=== PATIENT | female | born 1990 | race Caucasian/White ===

== ENCOUNTER 2017-06-13 08:18 | Inpatient (IN) | payer BC ==
[2017-06-13] MEDS ORDERED: Misoprostol 200 MCG Tab PO PRN (09:27)
[2017-06-13] MEDS ORDERED: Sodium Chloride 0.9% 10 ML Syringe FLUSH PRN (09:27)
[2017-06-13] MEDS ORDERED: Sodium Chloride 0.9% 2.5 ML Syringe FLUSH PRN (09:27)
[2017-06-13] MEDS ORDERED: Methylergonovine 0.2 MG/1 ML Amp IM PRN (09:27)
[2017-06-13] MEDS ORDERED: Water For Irrigation,Sterile 1,000 ML Container IRR PRN (09:27)
[2017-06-13] MEDS ORDERED: Lidocaine 1% 50 ML MDV INJECT PRN (09:27)
[2017-06-13] MEDS ORDERED: Nalbuphine 10 MG/1 ML Vial IVPUSH PRN (09:27)
[2017-06-13] MEDS ORDERED: Ampicillin 2 GM in Sodium Chloride 0.9% 100 ML IV ONE (09:27)
[2017-06-13] MEDS ORDERED: Carboprost Tromethamine 250 MCG/1 ML Amp IM PRN (09:27)
[2017-06-13] MEDS ORDERED: Oxytocin/0.9 % Sodium Chloride 30 UNIT/500 ML BAG IV SCH (09:30)
[2017-06-13] MEDS: Lactated Ringers 1,000 ML IV SCH ×2 (09:40→12:21)
[2017-06-13] MEDS ORDERED: fentaNYL 100 MCG/2 ML SDV ONE (12:40)
[2017-06-13] MEDS ORDERED: Ropivacaine HCl/PF 0 ML ONE (12:41)
[2017-06-13] MEDS ORDERED: Ropivacaine 0.2% 2 MG/ML 20 ML SDV ONE (12:41)
[2017-06-13] MEDS ORDERED: Ibuprofen 800 MG Tab PO PRN (13:26)
[2017-06-13] MEDS ORDERED: oxyCODONE 5 MG Tab PO PRN (13:26)
[2017-06-13] MEDS ORDERED: Ibuprofen 400 MG Tab PO PRN (13:26)
[2017-06-13] MEDS ORDERED: Bisacodyl 10 MG Supp RECTAL PRN (13:26)
[2017-06-13] MEDS ORDERED: Lanolin 100% Cream 7 GM Tube TOP PRN (13:26)
[2017-06-13] MEDS ORDERED: Acetaminophen 500 MG Tab PO PRN ×2 (13:26)
[2017-06-13] MEDS ORDERED: Docusate Sodium 100 MG Cap PO PRN (13:26)
[2017-06-13] MEDS: Witch Hazel Medicated Pads 40/Jar TOP PRN (15:56)
[2017-06-13] MEDS: Benzocaine/Menthol 20%-0.5% Spray 78 GM Cannister TOP PRN (15:57)
[2017-06-13] MEDS: Ampicillin 1 GM in Sodium Chloride 0.9% 50 ML IV SCH ×2 (21:04→21:05)
[2017-06-14] MEDS: Ampicillin 1 GM in Sodium Chloride 0.9% 50 ML IV SCH ×2 (00:37→02:35)
--- NOTE | 2017-06-14 08:58 | PCM.PNPP ---
- General Info Date of Service: 06/14/17 Admission Dx/Problem (Free Text): 27yo P2 s/p PPD 1 , stable Subjective Update: Patient seen at bedside , reports good pain control, minimal lochia Functional Status: Reports: Pain Controlled, Tolerating Diet, Ambulating, Urinating - Review of Systems General: Reports: No Symptoms HEENT: Reports: No Symptoms Pulmonary: Reports: No Symptoms Cardiovascular: Reports: No Symptoms Gastrointestinal: Reports: No Symptoms Genitourinary: Reports: No Symptoms Musculoskeletal: Reports: No Symptoms Skin: Reports: No Symptoms Neurological: Reports: No Symptoms - General Info Date of Service: 06/14/17 - Patient Data Vital Signs - Most Recent: Last Vital Signs Temp 36.3 C 06/14/17 04:00 Pulse 78 06/14/17 04:00 Resp 12 06/14/17 04:00 BP 115/79 06/14/17 04:00 Pulse Ox 97 06/14/17 04:00 Weight - Most Recent: 71.668 kg Lab Results - Last 24 Hours: Laboratory Results - last 24 hr 06/13/17 06/13/17 06/14/17 Range/Units 09:40 09:40 05:33 WBC 12.13 H (4.0-11.0) K/uL RBC 4.27 L (4.30-5.90) M/uL Hgb 13.5 12.0 (12.0-16.0) g/dL Hct 38.7 34.7 L (36.0-46.0) % MCV 90.6 (80.0-98.0) fL MCH 31.6 (27.0-32.0) pg MCHC 34.9 (31.0-37.0) g/dL RDW Std Deviation 43.5 (28.0-62.0) fl RDW Coeff of Belen 14 (11.0-15.0) % Plt Count 122 L (150-400) K/uL MPV 11.80 (7.40-12.00) fL Blood Type AB POSITIVE Antibody Screen NEGATIVE Med Orders - Current: Current Medications Acetaminophen (Tylenol Extra Strength) 500 mg PO Q4H PRN PRN Reason: Pain Acetaminophen (Tylenol Extra Strength) 1,000 mg PO Q4H PRN PRN Reason: Pain Benzocaine/Menthol (Dermoplast Pain Relief 20%-0.5% [place]) 78 gm TOP ASDIRECTED PRN PRN Reason: Perineal Comfort Measure Last Admin: 06/13/17 15:57 Dose: 1 can Bisacodyl (Dulcolax) 10 mg RECTAL .ONCE PRN PRN Reason: Constipation Carboprost Tromethamine (Hemabate Ds) 250 mcg IM ASDIRECTED PRN PRN Reason: Post Hemorrhage Docusate Sodium (Colace) 100 mg PO BID PRN PRN Reason: Constipation Emollient Ointment (Lansinoh Hpa) 0 gm TOP ASDIRECTED PRN PRN Reason: Sore Nipples Last Admin: 06/13/17 15:57 Dose: 1 tube Ampicillin Sodium 1 gm/ Sodium (Chloride) 50 mls @ 100 mls/hr IV Q4H [facility] Last Admin: 06/14/17 02:35 Dose: Not Given Lactated Ringer's (Ringers, Lactated) 1,000 mls @ 150 mls/hr IV ASDIRECTED [facility] Last Admin: 06/13/17 12:21 Dose: 150 mls/hr Oxytocin/Sodium Chloride (Oxytocin 30 Unit/500 Ml-Ns) 30 unit in 500 mls @ 500 mls/hr IV TITRATE [facility] Last Admin: 06/13/17 13:15 Dose: 500 mls/hr Ibuprofen (Motrin) 400 mg PO Q4H PRN PRN Reason: Pain Ibuprofen (Motrin) 800 mg PO Q6H PRN PRN Reason: Pain Lidocaine HCl (Xylocaine 1%) 50 ml INJECT .ONCE PRN PRN Reason: Laceration repair Methylergonovine Maleate (Methergine) 0.2 mg IM ASDIRECTED PRN PRN Reason: Post Hemorrhage Misoprostol (Cytotec) 200 mcg PO .ONCE PRN PRN Reason: Post Hemorrhage Nalbuphine HCl (Nubain) 10 mg IVPUSH Q1H PRN PRN Reason: Pain (severe 7-10) Last Admin: 06/13/17 10:54 Dose: 10 mg Oxycodone HCl (Oxycodone) 5 mg PO Q2H PRN PRN Reason: Pain Sodium Chloride (Saline Flush) 10 ml FLUSH ASDIRECTED PRN PRN Reason: Keep Vein Open Sodium Chloride (Saline Flush) 2.5 ml FLUSH ASDIRECTED PRN PRN Reason: Keep Vein Open Sterile Water (Sterile Water For Irrigation) 1,000 ml IRR ASDIRECTED PRN PRN Reason: delivery Last Admin: 06/13/17 13:14 Dose: 1,000 ml Witch Ashlyn (Tucks) 1 pad TOP ASDIRECTED PRN PRN Reason: comfort care Last Admin: 06/13/17 15:56 Dose: 1 canister Discontinued Medications Fentanyl (Sublimaze) Confirm Administered Dose 300 mcg .ROUTE .STK-MED ONE Stop: 06/13/17 12:41 Last Admin: 06/13/17 21:04 Dose: Not Given Ampicillin Sodium 2 gm/ Sodium (Chloride) 100 mls @ 200 mls/hr IV ONETIME ONE Stop: 06/13/17 09:56 Last Admin: 06/13/17 09:51 Dose: 200 mls/hr Ropivacaine (Naropin 0.2%) Confirm Administered Dose 100 mls @ as directed .ROUTE .STK-MED ONE Stop: 06/13/17 12:42 Last Admin: 06/13/17 21:04 Dose: Not Given Ropivacaine (Naropin 0.2%) Confirm Administered Dose 20 ml .ROUTE .STK-MED ONE Stop: 06/13/17 12:42 Last Admin: 06/13/17 21:04 Dose: Not Given - Interaction Support Person: - Recovery Exam Fundal Tone: Firm Fundal Level: At Umbilicus Fundal Placement: Midline Lochia Amount: Scant Lochia Color: Rubra/Red Perineum Description: Intact, Minimal Bruising/Swelling Episiotomy/Laceration: None Bladder Status: Voiding Urinary Elimination: Voided - Exam HEENT: Pupils Equal Lungs: Clear to Auscultation Cardiovascular: Regular Rate GI/Abdominal Exam: Normal Bowel Sounds Extremities: Normal Inspection - Problem List & Annotations (1) Vaginal delivery SNOMED Code(s): 170906216 Code(s): O80 - ENCOUNTER FOR FULL-TERM UNCOMPLICATED DELIVERY Status: Acute Current Visit: Yes - Problem List Review Problem List Initiated/Reviewed/Updated: Yes - My Orders Last 24 Hours: My Active Orders 06/13/17 09:27 Patient Status [ADT] Routine May Shower [RC] ASDIRECTED Notify Provider [RC] PRN Up ad Agnes [RC] ASDIRECTED Vital Signs [RC] PER UNIT ROUTINE Carboprost Tromethamine [Hemabate DS] 250 mcg IM ASDIRECTED PRN Lidocaine 1% [Xylocaine 1%] 50 ml INJECT .ONCE PRN Methylergonovine [Methergine] 0.2 mg IM ASDIRECTED PRN Misoprostol [Cytotec] 200 mcg PO .ONCE PRN Nalbuphine [Nubain] 10 mg IVPUSH Q1H PRN Sodium Chloride 0.9% [Saline Flush] 10 ml FLUSH ASDIRECTED PRN Sodium Chloride 0.9% [Saline Flush] 2.5 ml FLUSH ASDIRECTED PRN Water For Irrigation,Sterile [Sterile Water for Irrigation] 1,000 ml IRR ASDIRECTED PRN Scalp Electrode [WOMSER] Per Unit Routine Peripheral IV Insertion Adult [OM.PC] Routine Resuscitation Status Routine 06/13/17 09:30 Lactated Ringers [Ringers, Lactated] 1,000 ml IV ASDIRECTED Oxytocin/0.9 % Sodium Chloride [Oxytocin 30 Unit/500 ML-NS] 30 unit in 500 ml IV TITRATE 06/13/17 13:26 Patient Status [ADT] Routine May Shower [RC] ASDIRECTED Up ad Agnes [RC] ASDIRECTED Vital Signs [RC] PER UNIT ROUTINE Acetaminophen [Tylenol Extra Strength] 1,000 mg PO Q4H PRN Acetaminophen [Tylenol Extra Strength] 500 mg PO Q4H PRN Benzocaine/Menthol [Dermoplast Pain Relief 20%-0.5% [place]] 78 gm TOP ASDIRECTED PRN Bisacodyl [Dulcolax] 10 mg RECTAL .ONCE PRN Docusate Sodium [Colace] 100 mg PO BID PRN Ibuprofen [Motrin] 400 mg PO Q4H PRN Ibuprofen [Motrin] 800 mg PO Q6H PRN Lanolin [Lansinoh HPA] See Dose Instructions TOP ASDIRECTED PRN Witch Ashlyn [Tucks] 1 pad TOP ASDIRECTED PRN oxyCODONE 5 mg PO Q2H PRN Assess Lochia [WOMSER] Per Unit Routine Assess Uterine Involution [WOMSER] Per Unit Routine Peripheral IV Discontinue [OM.PC] Routine 06/13/17 14:00 Ampicillin 1 gm Sodium Chloride 0.9% [Normal Saline] 50 ml IV Q4H 06/13/17 Dinner Regular Diet [DIET] 06/13/17 Lunch Clear Liquid Diet [DIET] - Assessment Assessment:: 27 yo P2 s/p PPD 1 stable , minimal lochia - Plan Plan:: Pain control with OTC tylenol and Motrin Discharge home today Call [facility] if fever > 101 , heavy vaginal bleeding > 1 pad in 1 hr
[2017-06-14] MEDS: Benzocaine/Menthol 20%-0.5% Spray 78 GM Cannister TOP PRN (15:35)
[2017-06-14] MEDS: Witch Hazel Medicated Pads 40/Jar TOP PRN (15:35)
--- NOTE | 2017-06-14 22:23 | OR ---
SURGEON: IVAN NOWAK DATE OF PROCEDURE: 06/13/2017 PREOPERATIVE DIAGNOSIS: A 27-year-old, G2, P0-1-0-1, presented at 38 weeks 4 days in active labor. . GBS positive. POSTOPERATIVE DIAGNOSIS: Status post normal spontaneous vaginal delivery. EBL: 300. ANESTHESIA: Epidural. FINDING: A live female delivered at 1514 hours, weight was 2755 g. There was no laceration noted. score was 9 and 9. Three-vessel cord noted. BRIEF HISTORY: She was a 27-year-old, G2, P0-1-0-1 at 38weeks 4 days who came in complaining of contraction. She was noted to be 4, 50, -2 at around 10 o'clock. The patient had category 1 heart tracing and progressed accordingly at about 12 o'clock , AROM done Also patient received ampicillin for GBS prophylaxis. Patient progressed accordingly and was fully dilated PROCEDURE IN DETAIL: When the patient was fully dilated, she was encouraged to push. The patient had good pushing effort and delivered the head, followed by the anterior and posterior shoulder, followed by the 's body. The was placed on the mother's abdomen. Delayed cord clamping was observed. The cord was clamped and cut. The placenta was then delivered via controlled cord traction. After delivery of the placenta, the uterus was noted to be firm and 10 milliunits of Pitocin was given IM and also IM methergine was given because the IV line was not running. Hemostasis was noted and perineum was intact and all instrument and pad counts were correct x2. The and mother were left in the room bonding. CARLYLE BAHENA /[id number] NASIM
== END 2017-06-14 15:45 | disposition home or self-care (01) | DRG 560 ==
LOC: MW.OBCHECK 08:18 → MW.OB 08:24 → MW.OBCHECK 09:41 → MW.OB 09:41 → OBSVTOIN 13:14 → MW.OB 18:47
PROVIDERS: ADMIT Obstetrics & Gynecology; ATTEND Obstetrics & Gynecology
PROC: 10E0XZZ Delivery of Products of Conception, External Approach (ICD-10-PCS; principal; 2017-06-13)
PROC: 10907ZC Drainage of Amniotic Fluid, Therapeutic from Products of Conception, Via Natural or Artificial Opening (ICD-10-PCS; 2017-06-13)
DX: O99.824 Streptococcus B carrier state complicating childbirth (principal); Z3A.38 38 weeks gestation of pregnancy; Z37.0 Single live birth
CPT/HCPCS: 36415; 59025; 59409; 85014; 85018; 85027; 86850; 86900; 86901; A9270-GY; J0290; J2300; J2590; J7030; J7120

== ENCOUNTER 2019-06-30 05:11 | Inpatient (IN) | payer BC ==
[2019-06-30] MEDS ORDERED: Misoprostol 200 MCG Tab PO PRN (05:13)
[2019-06-30] MEDS ORDERED: Sodium Chloride 0.9% 10 ML Syringe FLUSH PRN (05:13)
[2019-06-30] MEDS ORDERED: Butorphanol 1 MG/ML SDV IVPUSH PRN (05:13)
[2019-06-30] MEDS ORDERED: Sodium Chloride 0.9% 2.5 ML Syringe FLUSH PRN (05:13)
[2019-06-30] MEDS ORDERED: Sodium Chloride 0.9% 10 ML SDV IV PRN (05:13)
[2019-06-30] MEDS ORDERED: Carboprost Tromethamine 250 MCG/1 ML Amp IM PRN (05:13)
[2019-06-30] MEDS ORDERED: Water For Irrigation,Sterile 1,000 ML Container IRR PRN (05:13)
[2019-06-30] MEDS ORDERED: Methylergonovine 0.2 MG/1 ML Amp IM PRN (05:13)
[2019-06-30] MEDS ORDERED: Terbutaline 1 MG/ML SDV SUBCUT PRN (05:13)
[2019-06-30] MEDS ORDERED: Tranexamic Acid 1,000 MG in Sodium Chloride 0.9% 100 ML IV PRN (05:13)
[2019-06-30] MEDS ORDERED: Lidocaine 1% 50 ML MDV INJECT PRN (05:13)
[2019-06-30] MEDS ORDERED: Ondansetron 4 MG/2 ML SDV IVPUSH PRN (05:13)
[2019-06-30] MEDS ORDERED: Oxytocin/0.9 % Sodium Chloride 30 UNIT/500 ML BAG IV SCH ×2 (05:15)
[2019-06-30] MEDS: Lactated Ringers 1,000 ML IV SCH ×2 (06:01→10:26)
[2019-06-30] MEDS ORDERED: Ropivacaine HCl/PF 100 ML ONE (10:06)
[2019-06-30] MEDS ORDERED: fentaNYL 100 MCG/2 ML SDV ONE (10:06)
--- NOTE | 2019-06-30 10:24 | PCM.PREANE ---
Preanesthetic Assessment - Anesthesia/Transfusion/Family Hx Anesthesia History: No Prior Anesthesia Family History of Anesthesia Reaction: No Transfusion History: No Prior Transfusion(s) - Physical Assessment NPO Status Date: 06/30/19 NPO Status Time: 00:05 Height: 1.65 m Weight: 79.379 kg ASA Class: 1 - Lab Values: Laboratory Last Values WBC 10.23 K/uL (4.0-11.0) 06/30/19 05:55 RBC 4.00 M/uL (4.30-5.90) L 06/30/19 05:55 Hgb 11.7 g/dL (12.0-16.0) L 06/30/19 05:55 Hct 34.8 % (36.0-46.0) L 06/30/19 05:55 MCV 87.0 fL (80.0-98.0) 06/30/19 05:55 MCH 29.3 pg (27.0-32.0) 06/30/19 05:55 MCHC 33.6 g/dL (31.0-37.0) 06/30/19 05:55 RDW Std Deviation 43.0 fl (28.0-62.0) 06/30/19 05:55 RDW Coeff of Belen 14 % (11.0-15.0) 06/30/19 05:55 Plt Count 132 K/uL (150-400) L 06/30/19 05:55 MPV 12.10 fL (7.40-12.00) H 06/30/19 05:55 Nucleated RBC % 0.0 /100WBC 06/30/19 05:55 Nucleated RBCs # 0 K/uL 06/30/19 05:55 Blood Type AB POSITIVE 06/30/19 05:55 Antibody Screen NEGATIVE 06/30/19 05:55 - Allergies Allergies/Adverse Reactions: Allergies Allergy/AdvReac Type Severity Reaction Status Date / Time hydrocodone Allergy Severe Difficulty Verified 06/13/17 09:27 Breathing - Acknowledgements Anesthesia Type Planned: Epidural Pt an Appropriate Candidate for the Planned Anesthesia: Yes Alternatives and Risks of Anesthesia Discussed w Pt/Guardian: Yes Pt/Guardian Understands and Agrees with Anesthesia Plan: Yes PreAnesthesia Questionnaire - Past Health History Medical/Surgical History: Denies Medical/Surgical History Cardiovascular History: Reports: None Respiratory History: Reports: None Gastrointestinal History: Reports: None Genitourinary History: Reports: None PUNCHER History: Reports: Musculoskeletal History: Reports: None Neurological History: Reports: None Psychiatric History: Reports: None Endocrine/Metabolic History: Reports: None Hematologic History: Reports: None Immunologic History: Reports: None Oncologic (Cancer) History: Reports: None Dermatologic History: Reports: None - Infectious Disease History Infectious Disease History: Reports: Chicken Pox - Past Surgical History Head Surgeries/Procedures: Reports: None HEENT Surgical History: Reports: Oral Surgery Other HEENT Surgeries/Procedures: wisdom teeth GI Surgical History: Reports: Cholecystectomy - SUBSTANCE USE Smoking Status *Q: Never Smoker Second Hand Smoke Exposure: No Recreational Drug Use History: No - CURRENT (IN HOUSE) MEDS Current Meds: Current Medications Butorphanol Tartrate (Stadol) 1 mg IVPUSH Q1H PRN PRN Reason: Pain Last Admin: 06/30/19 09:52 Dose: 1 mg Carboprost Tromethamine (Hemabate Ds) 250 mcg IM ASDIRECTED PRN PRN Reason: Post Hemorrhage Lactated Ringer's (Ringers, Lactated) 1,000 mls @ 150 mls/hr IV ASDIRECTED [facility] Last Infusion: 06/30/19 09:58 Dose: 999 mls/hr Oxytocin/Sodium Chloride (Oxytocin 30 Unit/500 Ml-Ns) 30 unit in 500 mls @ 500 mls/hr IV TITRATE [facility] Oxytocin/Sodium Chloride (Oxytocin 30 Unit/500 Ml-Ns) 30 unit in 500 mls @ 2 mls/hr IV TITRATE [facility]; Protocol Last Titration: 06/30/19 10:22 Dose: 6 munits/min, 6 mls/hr Tranexamic Acid 1,000 mg/ (Sodium Chloride) 110 mls @ 660 mls/hr IV ONETIME PRN PRN Reason: Bleeding Lidocaine HCl (Xylocaine 1%) 50 ml INJECT ONETIME PRN PRN Reason: Laceration repair Methylergonovine Maleate (Methergine) 0.2 mg IM ASDIRECTED PRN PRN Reason: Post Hemorrhage Misoprostol (Cytotec) 200 mcg PO ONETIME PRN PRN Reason: Post Hemorrhage Ondansetron HCl (Zofran) 4 mg IVPUSH Q6H PRN PRN Reason: Nausea/Vomiting Sodium Chloride (Saline Flush) 10 ml FLUSH ASDIRECTED PRN PRN Reason: Keep Vein Open Sodium Chloride (Saline Flush) 2.5 ml FLUSH ASDIRECTED PRN PRN Reason: Keep Vein Open Sodium Chloride (Normal Saline) 10 ml IV ASDIRECTED PRN PRN Reason: IV Use Sterile Water (Sterile Water For Irrigation) 1,000 ml IRR ASDIRECTED PRN PRN Reason: delivery Terbutaline Sulfate (Brethine) 0.25 mg SUBCUT ASDIRECTED PRN PRN Reason: Tacysystole Discontinued Medications Fentanyl (Sublimaze) Confirm Administered Dose 100 mcg .ROUTE .STK-MED ONE Stop: 06/30/19 10:07 Ropivacaine (Naropin 0.2%) Confirm Administered Dose 100 mls @ as directed .ROUTE .STK-MED ONE Stop: 06/30/19 10:07
--- NOTE | 2019-06-30 10:28 | PCM.PRNOTE ---
- Free Text/Narrative Note: Anes Note Patient requests epidural for L&D. Sitting position. Level L3--L4 midline approach. Sterile technique. Chloraprep scrub to lumbar area. Sterile fenstrated drape appied. Epidural space easily achieved single attempt with ease using JARRED technique. Cath threaded 5 cm with ease. Cath secured at skin at 9 cm using sterile clear adhesive dressing. Test 1015 3 cc 1.5% lido with epi negative. Load 1018 10 cc 0.2% ropivicaine with 1 mcg cc fentanyl in slow divided doses. 1021 Pump started with 90 cc of same solution. Rate is 8 cc hr, with 6 cc q 20 min prn bolus. Tiffany well. Time with patient [id number]
[2019-06-30] MEDS ORDERED: Benzocaine/Menthol 20%-0.5% Spray 78 GM Cannister TOP PRN (11:24)
[2019-06-30] MEDS ORDERED: Ibuprofen 400 MG Tab PO PRN (11:24)
[2019-06-30] MEDS ORDERED: Lanolin 100% Cream 7 GM Tube TOP PRN (11:24)
[2019-06-30] MEDS ORDERED: Acetaminophen 500 MG Tab PO PRN ×2 (11:24)
[2019-06-30] MEDS ORDERED: Docusate Sodium 100 MG Cap PO PRN (11:24)
[2019-06-30] MEDS ORDERED: Bisacodyl 10 MG Supp RECTAL PRN (11:24)
[2019-06-30] MEDS ORDERED: Ibuprofen 800 MG Tab PO PRN (11:24)
--- NOTE | 2019-06-30 11:36 | PCM.OPNOTE ---
- General Post-Op/Procedure Note Date of Surgery/Procedure: 06/30/19 Operative Procedure(s): /IP Findings: Viable female APGARs, 8, 9 weight 7 lb 15 oz. Shoulder dystocia--Jeffery positioning, suprapubic presssue, delivery of left posterior arm Pre Op Diagnosis: 39/4 week IUP. Elective IOL Post-Op Diagnosis: 39/4 week IUP. Elective IOL. Shoulder dystocia Anesthesia Technique: Epidural Primary Surgeon: Chelsea Augustin EBL in mLs: 300 Complications: Shoulder dystocia, delivery left posterior arm--on perineum 90 seconds Condition: Good Free Text/Narrative:: Dictation [id number]
--- NOTE | 2019-06-30 12:49 | OR ---
SURGEON: Chelsea Augustin M.D. DATE OF PROCEDURE: 06/30/2019 PREOPERATIVE DIAGNOSES: 1. A 39-4/7 weeks' intrauterine . 2. Elective induction of labor due to living remotely from the hospital and history of rapid labor. POSTOPERATIVE DIAGNOSES: 1. A 39-4/7 weeks' intrauterine . 2. Elective induction of labor due to living remotely from the hospital and history of rapid labor. 3. Shoulder dystocia. PROCEDURES: 1. Spontaneous vaginal delivery, intact perineum. 2. Shoulder dystocia with Jeffery positioning, suprapubic pressure, and delivery of left posterior arm. PRIMARY SURGEON: Chelsea Augustin MD. ANESTHESIA: Epidural. ESTIMATED BLOOD LOSS: 300 mL. COMPLICATIONS: Shoulder dystocia, delivery of left posterior arm, on perineum 90 seconds. DISPOSITION: The patient in LDRP, in nursery. PROCEDURE DETAILS: Margot is a 29-year-old G3, P2, at 39-4/7 weeks' gestational age, who presents on the morning of the 06/30/2019 for a scheduled induction of labor due to living remotely from the hospital and history of a rapid labor. The patient was admitted, routine labs drawn, IV hydration was initiated. Was initially found to be approximately 2 cm, 60% effaced, minus 3 station. Therefore, Pitocin was initiated. She is group B beta strep negative. heart tones category 1. Shortly before 9 a.m., the patient was found to be 3 cm, 70% effaced, minus 2 station. Underwent amniotomy, clear fluid was returned. The patient became increasingly uncomfortable, underwent regional anesthesia in the form of epidural. At that time, was found to be 5 cm. Shortly thereafter, rapidly progressed to 8 cm and then to complete, 100% effaced, +2 station with the urge to push. I was called for delivery. Upon my arrival, the patient was placed in modified dorsal lithotomy position, was prepped and draped in usual aseptic manner. The patient began pushing efforts, was able to deliver the head to a +4 station. Pitocin was at 6 milliunits. At this juncture, the patient was able to push to deliver infant's head. Thereafter, the shoulders just simply were not delivering. Therefore, the head of bed was flattened. The patient was placed in Jeffery positioning, suprapubic pressure was applied, and without delivery of the anterior shoulder. Therefore, attempted corkscrew maneuver with no manipulation of the anterior shoulder. The patient had good perineal mobility. Therefore, was able to maneuver the left posterior arm in a flexed position, cephaled, which achieved delivery of left posterior arm, followed by delivery of the anterior shoulder and remainder of the body. The 's oropharynx and nares were bulb suctioned. Cord was clamped x2 and cut. Infant was handed off to the attending ring making machine operator and nursery staff. Cord arterial, cord venous, cord blood sampling obtained. Light suprapubic pressure was applied while the placenta was delivered spontaneously intact. Vigorous fundal uterine massage was then applied while 30 units of Pitocin was delivered in 500 mL of IV fluid. Upon inspection of cervix, vaginal sidewall, perineum, these were found to be intact. Uterus remains firm, hemostasis is evident. During delivery and manipulation of the posterior arm, did hear a pop, which I notified the ring making machine operator of, and they will plan to do imaging study of the left clavicle, left humeral region of the baby. Sponge and instrument count was correct. The patient remained in LDRP, to nursery. AVIS / JOSEF /[id number] NASIM
[2019-06-30] MEDS: Witch Hazel Medicated Pads 40/Jar TOP PRN (14:27)
--- NOTE | 2019-06-30 14:34 | PCM48HPAN ---
Post Anesthesia Note - EVALUATION WITHIN 48HRS OF ANESTHETIC Vital Signs in Normal Range: Yes Patient Participated in Evaluation: Yes Respiratory Function Stable: Yes Airway Patent: Yes Cardiovascular Function Stable: Yes Hydration Status Stable: Yes Pain Control Satisfactory: Yes Nausea and Vomiting Control Satisfactory: Yes Mental Status Recovered: Yes
--- NOTE | 2019-06-30 14:34 | PCM.POSTAN ---
POST ANESTHESIA ASSESSMENT - MENTAL STATUS Mental Status: Alert - RESPIRATORY Respiratory Status: Respiratory Rate WNL - CARDIOVASCULAR CV Status: Pulse Rate WNL - GASTROINTESTINAL GI Status: No Symptoms - POST OP HYDRATION Hydration Status: Adequate & Stable
--- NOTE | 2019-07-01 08:51 | PCM.PNPP ---
- General Info Date of Service: 07/01/19 Functional Status: Reports: Pain Controlled, Tolerating Diet, Ambulating, Urinating - Review of Systems General: Reports: Fatigue. Denies: Fever, Weakness Pulmonary: Denies: Shortness of Breath Cardiovascular: Denies: Chest Pain, Palpitations, Lightheadedness Gastrointestinal: Denies: Abdominal Pain, Nausea, Vomiting Genitourinary: Denies: Flank Pain Musculoskeletal: Reports: No Symptoms Skin: Reports: No Symptoms Neurological: Reports: No Symptoms Psychiatric: Reports: No Symptoms - General Info Date of Service: 07/01/19 - Patient Data Vital Signs - Most Recent: Last Vital Signs Temp 36.8 C 07/01/19 07:30 Pulse 74 07/01/19 07:30 Resp 15 07/01/19 07:30 BP 110/73 07/01/19 07:30 Pulse Ox 98 07/01/19 07:30 Weight - Most Recent: 79.379 kg Lab Results - Last 24 Hours: Laboratory Results - last 24 hr 06/30/19 07/01/19 Range/Units 11:02 04:49 Hgb 12.1 (12.0-16.0) g/dL Hct 35.7 L (36.0-46.0) % Cord ABG pH 7.314 (7.18-7.38) Cord ABG Base Excess -5 (-10--2) Cord VBG pH 7.304 (7.25-7.45) Cord VBG Base Excess -5 (-10--2) Med Orders - Current: Current Medications Acetaminophen (Tylenol Extra Strength) 500 mg PO Q4H PRN PRN Reason: Pain Acetaminophen (Tylenol Extra Strength) 1,000 mg PO Q4H PRN PRN Reason: Pain Benzocaine/Menthol (Dermoplast Pain Relief 20%-0.5% [place]) 78 gm TOP ASDIRECTED PRN PRN Reason: Perineal Comfort Measure Last Admin: 06/30/19 14:28 Dose: 1 sprays Bisacodyl (Dulcolax) 10 mg RECTAL ONETIME PRN PRN Reason: Constipation Carboprost Tromethamine (Hemabate Ds) 250 mcg IM ASDIRECTED PRN PRN Reason: Post Hemorrhage Docusate Sodium (Colace) 100 mg PO BID PRN PRN Reason: Constipation Emollient Ointment (Lansinoh Hpa) 0 gm TOP ASDIRECTED PRN PRN Reason: Sore Nipples Lactated Ringer's (Ringers, Lactated) 1,000 mls @ 150 mls/hr IV ASDIRECTED [facility] Last Infusion: 06/30/19 11:04 Dose: 0 mls/hr Oxytocin/Sodium Chloride (Oxytocin 30 Unit/500 Ml-Ns) 30 unit in 500 mls @ 500 mls/hr IV TITRATE [facility] Oxytocin/Sodium Chloride (Oxytocin 30 Unit/500 Ml-Ns) 30 unit in 500 mls @ 2 mls/hr IV TITRATE [facility]; Protocol Last Titration: 06/30/19 11:04 Dose: 500 munits/min, 500 mls/hr Tranexamic Acid 1,000 mg/ (Sodium Chloride) 110 mls @ 660 mls/hr IV ONETIME PRN PRN Reason: Bleeding Ibuprofen (Motrin) 400 mg PO Q4H PRN PRN Reason: Pain Ibuprofen (Motrin) 800 mg PO Q6H PRN PRN Reason: Pain Last Admin: 06/30/19 20:37 Dose: 800 mg Methylergonovine Maleate (Methergine) 0.2 mg IM ASDIRECTED PRN PRN Reason: Post Hemorrhage Ondansetron HCl (Zofran) 4 mg IVPUSH Q6H PRN PRN Reason: Nausea/Vomiting Sodium Chloride (Saline Flush) 10 ml FLUSH ASDIRECTED PRN PRN Reason: Keep Vein Open Sodium Chloride (Saline Flush) 2.5 ml FLUSH ASDIRECTED PRN PRN Reason: Keep Vein Open Sodium Chloride (Normal Saline) 10 ml IV ASDIRECTED PRN PRN Reason: IV Use Sterile Water (Sterile Water For Irrigation) 1,000 ml IRR ASDIRECTED PRN PRN Reason: delivery Terbutaline Sulfate (Brethine) 0.25 mg SUBCUT ASDIRECTED PRN PRN Reason: Tacysystole Witch Ashlyn (Tucks) 1 pad TOP ASDIRECTED PRN PRN Reason: comfort care Last Admin: 06/30/19 14:27 Dose: 1 pad Discontinued Medications Butorphanol Tartrate (Stadol) 1 mg IVPUSH Q1H PRN PRN Reason: Pain Last Admin: 06/30/19 09:52 Dose: 1 mg Fentanyl (Sublimaze) Confirm Administered Dose 100 mcg .ROUTE .STK-MED ONE Stop: 06/30/19 10:07 Last Admin: 07/01/19 07:16 Dose: Not Given Ropivacaine (Naropin 0.2%) Confirm Administered Dose 100 mls @ as directed .ROUTE .STK-MED ONE Stop: 06/30/19 10:07 Last Admin: 07/01/19 07:16 Dose: Not Given Lidocaine HCl (Xylocaine 1%) 50 ml INJECT ONETIME PRN PRN Reason: Laceration repair Misoprostol (Cytotec) 200 mcg PO ONETIME PRN PRN Reason: Post Hemorrhage - Interaction Support Person: - Recovery Exam Fundal Tone: Firm Fundal Level: 1 Fingerbreadths Below Umbilicus Fundal Placement: Midline Lochia Amount: Scant Lochia Color: Rubra/Red Perineum Description: Intact, Minimal Bruising/Swelling Episiotomy/Laceration: None Bladder Status: Voiding Urinary Elimination: Voided - Exam General: Alert, Oriented Lungs: Normal Respiratory Effort Cardiovascular: Regular Rate, Regular Rhythm GI/Abdominal Exam: Normal Bowel Sounds, Soft Extremities: Pedal Edema (trace). No: Chung's Sign Skin: Warm, Dry, Intact Neurological: No New Focal Deficit Psy/Mental Status: Alert, Normal Affect, Normal Mood - Problem List & Annotations (1) Vaginal delivery SNOMED Code(s): 859625683 Code(s): O80 - ENCOUNTER FOR FULL-TERM UNCOMPLICATED DELIVERY Status: Acute Current Visit: No - Problem List Review Problem List Initiated/Reviewed/Updated: Yes - My Orders Last 24 Hours: My Active Orders 06/30/19 11:24 Notify Provider Vital Signs [RC] ASDIRECTED Acetaminophen [Tylenol Extra Strength] 1,000 mg PO Q4H PRN Acetaminophen [Tylenol Extra Strength] 500 mg PO Q4H PRN Benzocaine/Menthol [Dermoplast Pain Relief 20%-0.5% [place]] 78 gm TOP ASDIRECTED PRN Bisacodyl [Dulcolax] 10 mg RECTAL ONETIME PRN Docusate Sodium [Colace] 100 mg PO BID PRN Ibuprofen [Motrin] 400 mg PO Q4H PRN Ibuprofen [Motrin] 800 mg PO Q6H PRN Lanolin [Lansinoh HPA] See Dose Instructions TOP ASDIRECTED PRN Witch Ashlyn [Tucks] 1 pad TOP ASDIRECTED PRN 06/30/19 11:25 Patient Status [ADT] Routine May Shower [RC] ASDIRECTED Up ad Agnes [RC] ASDIRECTED Vital Signs [RC] PER UNIT ROUTINE Assess Lochia [WOMSER] Per Unit Routine Assess Uterine Involution [WOMSER] Per Unit Routine Ice Therapy [OM.PC] Per Unit Routine Perineal Care [OM.PC] Per Unit Routine Peripheral IV Discontinue [OM.PC] Routine Sitz Bath [OM.PC] Per Unit Routine 06/30/19 Lunch Regular Diet [DIET] - Assessment Assessment:: PPD 1 status post Shoulder dystocia - Plan Plan:: Continue PP cares. Patient is doing well overall. Work with today.
[2019-07-01] MEDS: Witch Hazel Medicated Pads 40/Jar TOP PRN (20:24)
--- NOTE | 2019-07-02 08:53 | PCM.PNPP ---
- General Info Date of Service: 07/02/19 Functional Status: Reports: Pain Controlled, Tolerating Diet, Ambulating, Urinating - Review of Systems General: Denies: Fever, Weakness, Fatigue Pulmonary: Denies: Shortness of Breath Cardiovascular: Denies: Chest Pain, Palpitations, Lightheadedness Gastrointestinal: Denies: Abdominal Pain, Nausea, Vomiting Genitourinary: Denies: Flank Pain Musculoskeletal: Reports: No Symptoms Skin: Reports: No Symptoms Neurological: Reports: No Symptoms Psychiatric: Reports: No Symptoms - General Info Date of Service: 07/02/19 - Patient Data Vital Signs - Most Recent: Last Vital Signs Temp 36.8 C 07/02/19 04:30 Pulse 72 07/02/19 04:30 Resp 16 07/02/19 04:30 BP 106/67 07/02/19 04:30 Pulse Ox 97 07/02/19 04:30 Weight - Most Recent: 79.379 kg Lab Results - Last 24 Hours: Laboratory Results - last 24 hr 06/30/19 Range/Units 05:55 RPR Non Reactive (NonRea<1:1) Med Orders - Current: Current Medications Acetaminophen (Tylenol Extra Strength) 500 mg PO Q4H PRN PRN Reason: Pain Acetaminophen (Tylenol Extra Strength) 1,000 mg PO Q4H PRN PRN Reason: Pain Benzocaine/Menthol (Dermoplast Pain Relief 20%-0.5% [place]) 78 gm TOP ASDIRECTED PRN PRN Reason: Perineal Comfort Measure Last Admin: 06/30/19 14:28 Dose: 1 sprays Bisacodyl (Dulcolax) 10 mg RECTAL ONETIME PRN PRN Reason: Constipation Carboprost Tromethamine (Hemabate Ds) 250 mcg IM ASDIRECTED PRN PRN Reason: Post Hemorrhage Docusate Sodium (Colace) 100 mg PO BID PRN PRN Reason: Constipation Emollient Ointment (Lansinoh Hpa) 0 gm TOP ASDIRECTED PRN PRN Reason: Sore Nipples Lactated Ringer's (Ringers, Lactated) 1,000 mls @ 150 mls/hr IV ASDIRECTED SURI Last Infusion: 06/30/19 11:04 Dose: 0 mls/hr Oxytocin/Sodium Chloride (Oxytocin 30 Unit/500 Ml-Ns) 30 unit in 500 mls @ 500 mls/hr IV TITRATE SURI Oxytocin/Sodium Chloride (Oxytocin 30 Unit/500 Ml-Ns) 30 unit in 500 mls @ 2 mls/hr IV TITRATE SURI; Protocol Last Titration: 06/30/19 11:04 Dose: 500 munits/min, 500 mls/hr Tranexamic Acid 1,000 mg/ (Sodium Chloride) 110 mls @ 660 mls/hr IV ONETIME PRN PRN Reason: Bleeding Ibuprofen (Motrin) 400 mg PO Q4H PRN PRN Reason: Pain Ibuprofen (Motrin) 800 mg PO Q6H PRN PRN Reason: Pain Last Admin: 06/30/19 20:37 Dose: 800 mg Methylergonovine Maleate (Methergine) 0.2 mg IM ASDIRECTED PRN PRN Reason: Post Hemorrhage Ondansetron HCl (Zofran) 4 mg IVPUSH Q6H PRN PRN Reason: Nausea/Vomiting Sodium Chloride (Saline Flush) 10 ml FLUSH ASDIRECTED PRN PRN Reason: Keep Vein Open Sodium Chloride (Saline Flush) 2.5 ml FLUSH ASDIRECTED PRN PRN Reason: Keep Vein Open Sodium Chloride (Normal Saline) 10 ml IV ASDIRECTED PRN PRN Reason: IV Use Sterile Water (Sterile Water For Irrigation) 1,000 ml IRR ASDIRECTED PRN PRN Reason: delivery Terbutaline Sulfate (Brethine) 0.25 mg SUBCUT ASDIRECTED PRN PRN Reason: Tacysystole Witch [place] (Tucks) 1 pad TOP ASDIRECTED PRN PRN Reason: comfort care Last Admin: 07/01/19 20:24 Dose: 1 pad Discontinued Medications Butorphanol Tartrate (Stadol) 1 mg IVPUSH Q1H PRN PRN Reason: Pain Last Admin: 06/30/19 09:52 Dose: 1 mg Fentanyl (Sublimaze) Confirm Administered Dose 100 mcg .ROUTE .STK-MED ONE Stop: 06/30/19 10:07 Last Admin: 07/01/19 07:16 Dose: Not Given Ropivacaine (Naropin 0.2%) Confirm Administered Dose 100 mls @ as directed .ROUTE .STK-MED ONE Stop: 06/30/19 10:07 Last Admin: 07/01/19 07:16 Dose: Not Given Lidocaine HCl (Xylocaine 1%) 50 ml INJECT ONETIME PRN PRN Reason: Laceration repair Misoprostol (Cytotec) 200 mcg PO ONETIME PRN PRN Reason: Post Hemorrhage - Interaction Support Person: - Recovery Exam Fundal Tone: Firm Fundal Level: 1 Fingerbreadths Below Umbilicus Fundal Placement: Midline Lochia Amount: Scant Lochia Color: Rubra/Red Perineum Description: Intact, Minimal Bruising/Swelling Episiotomy/Laceration: None Bladder Status: Voiding Urinary Elimination: Voided - Exam General: Alert, Oriented Lungs: Normal Respiratory Effort Cardiovascular: Regular Rate, Regular Rhythm GI/Abdominal Exam: Normal Bowel Sounds, Soft Extremities: Pedal Edema (trace). No: Chung's Sign Skin: Warm, Dry, Intact Neurological: No New Focal Deficit Psy/Mental Status: Alert, Normal Affect, Normal Mood - Problem List & Annotations (1) Vaginal delivery SNOMED Code(s): 319221542 Code(s): O80 - ENCOUNTER FOR FULL-TERM UNCOMPLICATED DELIVERY Status: Acute Current Visit: No - Problem List Review Problem List Initiated/Reviewed/Updated: Yes - My Orders Last 24 Hours: My Active Orders 07/02/19 08:51 Ready for Discharge [RC] PER UNIT ROUTINE - Assessment Assessment:: PPD 2 status post Shoulder dystocia - Plan Plan:: Patient feels ready to go home. Discharge instructions reviewed. Follow up at [facility] 6 weeks. Discharge to home today.
== END 2019-07-02 11:00 | disposition home or self-care (01) | DRG 560 ==
LOC: MW.OB 05:11 → MW.OBCHECK 05:11 → MW.OB 05:14 → MW.OBCHECK 05:14 → OBSVTOIN 11:25 → MW.OB 15:33
PROVIDERS: ADMIT Obstetrics & Gynecology; ATTEND Obstetrics & Gynecology
PROC: 10E0XZZ Delivery of Products of Conception, External Approach (ICD-10-PCS; principal; 2019-06-30)
PROC: 3E033VJ Introduction of Other Hormone into Peripheral Vein, Percutaneous Approach (ICD-10-PCS; 2019-06-30)
PROC: 10907ZC Drainage of Amniotic Fluid, Therapeutic from Products of Conception, Via Natural or Artificial Opening (ICD-10-PCS; 2019-06-30)
PROC: 3E0R3BZ Introduction of Anesthetic Agent into Spinal Canal, Percutaneous Approach (ICD-10-PCS; 2019-06-30)
PROC: 00HU33Z Insertion of Infusion Device into Spinal Canal, Percutaneous Approach (ICD-10-PCS; 2019-06-30)
DX: O66.0 Obstructed labor due to shoulder dystocia (principal); Z3A.39 39 weeks gestation of pregnancy; Z37.0 Single live birth
CPT/HCPCS: 01967; 36415; 59025; 59409; 82803; 85014; 85018; 85027; 86593; 86850; 86900; 86901; A9270-GY; J0595; J2590; J7120

== ENCOUNTER 2023-10-31 05:17 | Inpatient (IN) | payer BC ==
[2023-10-31] MEDS ORDERED: Misoprostol 200 MCG Tab PO PRN (05:20)
[2023-10-31] MEDS ORDERED: Carboprost Tromethamine 250 MCG/1 mL Vial IM PRN (05:20)
[2023-10-31] MEDS ORDERED: Lidocaine 1% 50 ML MDV INJECT PRN (05:20)
[2023-10-31] MEDS ORDERED: Water For Irrigation,Sterile 1,000 ML Container IRR PRN (05:20)
[2023-10-31] MEDS ORDERED: Tranexamic Acid IN NACL,ISO-OS 1,000 MG in Premix Bag 1 BAG IV PRN (05:20)
[2023-10-31] MEDS ORDERED: Methylergonovine 0.2 MG/1 ML Amp IM PRN (05:20)
[2023-10-31] MEDS: Lactated Ringers 1,000 ML IV SCH (05:23)
[2023-10-31] MEDS: Oxytocin/0.9 % Sodium Chloride 30 UNIT/500 ML BAG IV SCH (05:40)
[2023-10-31] MEDS ORDERED: Docusate Sodium 100 MG Cap PO PRN (05:55)
[2023-10-31] MEDS ORDERED: Acetaminophen 500 MG Tab PO PRN (05:55)
[2023-10-31] MEDS ORDERED: Lanolin 100% Cream 7 GM Tube TOP PRN (05:55)
[2023-10-31] MEDS ORDERED: Sodium Chloride 0.9% 10 ML Syringe FLUSH PRN (05:55)
[2023-10-31] MEDS ORDERED: Sodium Chloride 0.9% 20 ML SDV IV PRN (05:55)
[2023-10-31] MEDS ORDERED: Sodium Chloride 0.9% 2.5 ML Syringe FLUSH PRN (05:55)
[2023-10-31] MEDS ORDERED: Ibuprofen 800 MG Tab PO PRN (05:55)
[2023-10-31 06:48] LABS: HEMATOCRIT 36.5 % (37.0-47.0); HEMOGLOBIN 12.6 g/dL (12.0-16.0); MEAN CORPUSCULAR HEMOGLOBIN 30.1 pg (28.0-32.0); MEAN CORPUSCULAR HGB CONC 34.5 g/dL (32.0-36.0); MEAN CORPUSCULAR VOLUME 87.1 fL (83.0-99.0); MEAN PLATELET VOLUME 10.6 fL (9.4-12.3); PLATELET COUNT,PLT 151 K/uL (150-400); RED BLOOD CELL COUNT 4.19 M/uL (4.10-5.30); WHITE BLOOD CELL COUNT,WBC 13.81 K/uL (3.9-11.3)
[2023-10-31] MEDS: Witch Hazel Medicated Pads 40/Jar TOP PRN (08:25)
[2023-10-31 15:21] LABS: HEMATOCRIT 33.8 % (37.0-47.0); HEMOGLOBIN 11.9 g/dL (12.0-16.0)
[2023-10-31] MEDS: Benzocaine/Menthol 20%-0.5% Spray 78 GM Cannister TOP PRN (16:53)
== END 2023-11-01 10:36 | disposition home or self-care (01) | DRG 560 ==
LOC: MW.OBCHECK 05:17 → MW.OB 05:19 → MW.OBCHECK 05:41 → OBSVTOIN 05:41 → MW.OB 08:33
PROVIDERS: ADMIT Obstetrics & Gynecology; ATTEND Obstetrics & Gynecology
PROC: 10E0XZZ Delivery of Products of Conception, External Approach (ICD-10-PCS; principal; 2023-10-31)
DX: O77.0 Labor and delivery complicated by meconium in amniotic fluid (principal); Z3A.39 39 weeks gestation of pregnancy; Z37.0 Single live birth
CPT/HCPCS: 36415; 59025; 59409; 85014; 85018; 85027; 86592; 86850; 86900; 86901; A9270-GY; J2590; J7120